=== PATIENT | female | born 1995 | race Caucasian/White ===

== ENCOUNTER 2024-05-24 10:53 | Outpatient (CLI) | payer MEDICAID, SELFPAY ==
--- NOTE | 2024-05-24 10:59 | US_ITS ---
PROCEDURE INFORMATION: Exam: US Left Breast, Complete Exam date and time: 05/24/2024 10:55 AM Age: 28 years old Clinical indication: Breast pain; Left; Left breast/lump TECHNIQUE: Imaging protocol: Complete ultrasound of all four quadrants of the left breast and the retroareolar regions, including ultrasound of the axilla when performed. COMPARISON: No relevant prior studies available. FINDINGS: ULTRASOUND: Breast ultrasound findings: Sonographic images of the left breast including the retroareolar region, all 4 quadrants and the axilla do not demonstrate any solid or cystic masses. 0.6 cm fat containing normal appearing intramammary lymph node in the left 3 o'clock axis 5 cm from the nipple. No architectural distortion or acoustical shadowing. No skin thickening or axillary adenopathy. IMPRESSION: If the patient is reporting a palpable abnormality, further evaluation with a diagnostic left mammogram would be recommended. In the absence of a palpable abnormality or other significant clinical symptoms,annual bilateral mammographic screening is recommended to commence at the age of 40 ASSESSMENT: BI-RADS Category 1: Negative.
== END 2024-05-24 23:59 | disposition home or self-care (01) ==
LOC: RAD 10:54
PROVIDERS: PCP Nurse Practitioner Family; Visit Provider Nurse Practitioner Family
DX: N63.25 Unspecified lump in the left breast, overlapping quadrants (principal)
CPT/HCPCS: 76641

== ENCOUNTER 2024-08-11 08:18 | Outpatient (CLI) | payer MEDICAID, SELFPAY ==
--- NOTE | 2024-08-11 08:19 | US_ITS ---
FINAL REPORT CLINICAL HISTORY: elevated liver enzymes COMPARISON: None FINDINGS: Sonographic images of the right upper quadrant were obtained. The pancreas is partially obscured. There is fatty infiltration of the liver. The gallbladder appears normal without evidence of gallstones.There is no evidence of biliary ductal dilatation.The common duct measures 2 mm. Limited images of the right kidney are unremarkable. IMPRESSION: Fatty liver. Reviewed, Interpreted and Dictated by Matthew Eastman III, MD Transcribed by Kathrin Arvizu Authenticated and [facility]
== END 2024-08-11 23:59 | disposition home or self-care (01) ==
LOC: RAD 08:19
PROVIDERS: PCP Nurse Practitioner Family; Visit Provider Nurse Practitioner Family
DX: R74.8 Abnormal levels of other serum enzymes (principal)
CPT/HCPCS: 76705

== ENCOUNTER 2024-10-17 12:02 | Emergency (ER) | payer MEDICAID, SELFPAY ==
[2024-10-17] VITALS (7 sets, daily range): BP systolic 123–144; BP diastolic 78–93; PULSE 90–105; RESP 16–20; TEMP 37–37.1; O2SAT 98–100; BMI 29.7
--- NOTE | 2024-10-17 12:05 | ECG_ITS ---
APPROVED REPORT Exam: Resting ECG HR:102 bpm ECG Measurements Heart Rate 102 AXES IN 134 P 58 QRSd 83 QRS 39 QT 330 T 16 QTc 389 Conclusion SINUS TACHYCARDIA ABNORMAL RHYTHM ECG No STEMI Electronically signed by : NELSON FIELDS, 10/18/2024 06:57:10
--- NOTE | 2024-10-17 12:07 | HMH.EDGENADL ---
Discharge Plan Prescriptions Prescriptions: No Action omeprazole 20 mg capsule,delayed release(DR/EC) 20 mg PO DAILY Qty: 30 5RF buspirone 10 mg tablet 20 mg PO BID Qty: 120 1RF bupropion HCl [Wellbutrin XL] 150 mg tablet extended release 24 hr 150 mg PO DAILY Qty: 30 1RF Print Language Print Language: Portuguese Discharge ED Provider: Leta Davis General Adult HPI General Stated complaint: SYNCOPE Time Seen by Provider: 10/17/24 12:07 Related Data Previous Rx's ?Medication ?Instructions ?Recorded omeprazole 20 mg capsule,delayed 20 mg PO DAILY #30 caps 08/02/24 release bupropion HCl 150 mg 24 hr tablet, 150 mg PO DAILY #30 tabs 09/27/24 extended release (Wellbutrin XL) buspirone 10 mg tablet 20 mg (2 x 10 mg) PO BID #120 tabs 09/27/24 Allergies Allergy/AdvReac Type Severity Reaction Status Date / Time No Known Allergies Allergy Verified 09/26/24 14:48 [facility] Disclaimer: The information contained in this section may have been updated after the patient was seen, as this information can be updated by other users. Medical History (Updated 10/12/24 @ 08:38 by DAYO Gray) Hearing loss Alcohol abuse Generalized anxiety disorder Surgical History History of bunionectomy of left great toe Family History (Updated 09/26/24 @ 14:48 by Ana Paula Casillas RN) Other No significant family history Social History (Updated 09/26/24 @ 14:43 by Ana Paula Casillas RN) Smoking Status: Current every day smoker tobacco type: e-cigarettes second hand exposure: No alcohol intake: current alcohol intake frequency: 3 or more drinks per day counseling given: No substance use type: denies use counseling given: No current occupational status: unemployed and other details: [facility] Travel in the last 8 weeks: None adopted: No caregiver/support person: Yes foster care: No household members: spouse housing: house lives independently: Yes marital status: number of children: 3 number of grandchildren: 0 education level: college current occupation: associates in [employer] caffeine: Yes physical activity: none working smoke detector in home: Yes fire extinguisher in home: Yes carbon monox detector in home: No firearms in home: Yes firearms unloaded and locked: Yes do you feel safe at home: Yes victim of physical abuse: No victim of emotional abuse: No victim of sexual abuse: No would you like helpful sources: No Other Medical History Have you received the Pneumonia Vaccine: No ROS Obtained: Yes Systems reviewed as appropriate & no additional complaints except as documented Physical Exam General General appearance: alert and in no apparent distress Head Head exam: atraumatic and normal inspection Eye Eye exam: Present normal appearance, PERRL and EOMI ENT ENT exam: Present normal exam, normal oropharynx and mucous membranes moist Neck Neck exam: Present normal inspection, full ROM and trachea midline; Absent lymphadenopathy Chest Chest inspection: Present normal inspection and symmetric chest wall rise Respiratory Respiratory exam: Present normal lung sounds bilaterally; Absent accessory muscle use Cardiovascular Cardiovascular exam: Present regular rate, normal rhythm, normal heart sounds, +S1 and +S2 Abdominal Exam Abdominal exam: Present soft and normal bowel sounds; Absent tenderness, guarding or rebound Extremities Exam Extremities exam: Present normal inspection and full ROM Neurological Exam Neurological exam: Present alert, oriented X3 and CN II-XII intact Psychiatric Psychiatric exam: Present normal affect and normal mood Skin Skin exam: Present warm, dry and normal color Lymphatic Lymphatic Findings: no adenopathy Medical Decision Making Medical Records Screening: Per USPSTF and CDC recommendations, given the prevalence of disease in our region, it is our hospital?s policy to screen for HIV and viral Hepatitis for all patients aged 18 and over and those with ongoing risk factors. Medical Decision Narrative: In summary patient is a [age, sex] who presents to the emergency department for evaluation of [complaint]. Patient is [hemodynamically stable/unstable] upon arrival, [febrile/afebrile]. [Unremarkable physical exam, nonfocal exam versus focal remarkable exam]. Differential diagnosis includes [DDx]. Initial workup will be conducted with [hematologic labs, imaging, respiratory swab, describe workup]. Initial interventions include [crystalloid bolus, medications, p.o. challenge, etc.] initial workup reviewed by me [hematologic labs are remarkable for... Imaging remarkable for... Urinalysis remarkable for]. Upon repeat evaluation [patient had acceptable resolution of symptoms, had persistent pain for which additional interventions were conducted (describe interventions), tolerated p.o., was ambulatory, etc.]. Given this [patient is appropriate for discharge at this time and will be discharged with a prescription for... The case was discussed with hospital medicine regarding management and they will admit the patient their service for continued evaluation at this time... Etc.] Places where you can increase complexity: I informally interpreted the patient's chest x-ray or CT read and is remarkable for... Documenting what the hall monitor shows with rate and rhythm Consideration of test but deferring. Ex: I considered chest x-ray on this patient however given that they have no oxygen requirement and are clear to auscultation all lung benavides will be deferred. Social determinants of health: Given that patient is undomiciled increases complexity. Given that patient has polysubstance abuse compounds all aspects of care
--- NOTE | 2024-10-17 12:11 | PC.NURSE ---
DR NICOLAS AT BEDSIDE
--- NOTE | 2024-10-17 12:17 | XR_ITS ---
FINAL REPORT CLINICAL HISTORY: Shortness of breath COMPARISON: None FINDINGS: No acute pulmonary opacity is present. There is no evidence of effusion or pneumothorax. Mediastinum is unremarkable. Heart size is normal. IMPRESSION: No acute abnormality. Reviewed, Interpreted and Dictated by Noa Romero MD Transcribed by Kathrin Arvizu Authenticated and [facility]
--- NOTE | 2024-10-17 12:20 | ED_ITS ---
Discharge Plan Disposition Patient Disposition: Home, Self-Care Prescriptions Prescriptions: No Action fluticasone propionate [Flonase Allergy Relief] 50 mcg/actuation spray,suspension 2 spray intranasal DAILY Rx Instructions: administer into each nostril Referrals Follow up/Referrals: Tyler Vann II, MD [Staff Physician] - See instructions Neel Love MD [Staff Physician] - See instructions Activity Restrictions/Add. Instructions Additional Instructions/Restrictions: No emergent medical condition identified today your symptoms are most consistent with an acute vasovagal syncopal episode in the setting of a flulike or viral illness. Additionally you have some mild transaminase elevations which may be secondary to an acute viral illness but will need to be followed to completion. I have given you a referral to Dr. Vann our cat and dog bather you may also choose to follow-up with her transportation agent for an outpatient Holter monitor and possible echo to be thorough to make sure there is no underlying cardiac pathology which is unlikely. Clinical Impressions Clinical Impression: Flu-like symptoms, Syncope, vasovagal, Abnormal transaminases Stand Alone Forms Stand Alone Forms: Work/School Release Instructions Patient Instructions: DI for Syncope in Adults (Fainting), DI for Syncope in Children (Fainting) Print Language Print Language: Libyan Discharge ED Provider: Leta Davis General Adult HPI General Chief complaint: Syncope Stated complaint: SYNCOPE Time Seen by Provider: 10/17/24 12:07 Mode of Arrival: EMS Source of Information: Patient Limitations: No Limitations Description of Symptoms (Recalled from ER Triage Doc. by RN): PT AT PCP FOR FLU- LIKE SYMPTOMS. REPORTS SORE THROAT, RUNNY NOSE, EAR AND HEAD CONGESTION. WHILE AT OFFICE HAD A SYNCOPAL EPISODE, LOC FOR A FEW SECONDS. WITNESSED EVENT, HR 50'S AND LOW B/P. PT FEELS AT BASELINE AT THIS TIME History of Present Illness HPI narrative: 29-year-old female presents today with syncopal episode brought in by EMS. She actually to her primary care doctor for flulike symptoms of an ongoing last or days which includes cough sore throat rhinorrhea ear congestion she is also been complaining of some tinnitus in the right ear and she has a follow-up with ENT soon. She denies any other neurologic complaints. States she felt lightheaded and in the doctor's office her heart rate started to drop 1 into the 50s and her blood pressure dropped as well. She was only unconscious for a matter of moments regained consciousness quickly no seizure-like activity was noted she did not bite her tongue or have any urine incontinence. No history of seizures. Other than recent flulike symptoms she denies any other symptoms including chest pain shortness of breath etc. States she is otherwise back to her baseline other than the infectious symptoms that she initially sought care for the primary care doctor's office. She denies any family history of any sudden cardiac or any personal history of any cardiopulmonary disease. Related Data Home Medications ?Medication ?Instructions ?Recorded ?Confirmed fluticasone propionate 50 2 spray intranasal DAILY 10/20/24 10/20/24 mcg/actuation nasal spray,suspension (Flonase Allergy Relief) Allergies Allergy/AdvReac Type Severity Reaction Status Date / Time No Known Allergies Allergy Verified 10/20/24 14:33 [facility] Disclaimer: The information contained in this section may have been updated after the patient was seen, as this information can be updated by other users. Medical History (Updated 10/20/24 @ 15:42 by Leelee Patel APRN) Chronic sinusitis Ear discharge Sinus pressure Sinus pain Acute pain of both ears Hearing loss Alcohol abuse Generalized anxiety disorder Surgical History History of bunionectomy of left great toe Family History Other No significant family history Social History Smoking Status: Current every day smoker tobacco type: e-cigarettes second hand exposure: No alcohol intake: current alcohol intake frequency: 3 or more drinks per day counseling given: No substance use type: denies use counseling given: No current occupational status: unemployed and other details: [employer] Travel in the last 8 weeks: None adopted: No caregiver/support person: Yes foster care: No household members: spouse housing: house lives independently: Yes marital status: number of children: 3 number of grandchildren: 0 education level: college current occupation: associates in [employer] caffeine: Yes physical activity: none working smoke detector in home: Yes fire extinguisher in home: Yes carbon monox detector in home: No firearms in home: Yes firearms unloaded and locked: Yes do you feel safe at home: Yes victim of physical abuse: No victim of emotional abuse: No victim of sexual abuse: No would you like helpful sources: No Have you lived/traveled outside US in past 30 days?: No Contact w/someone who lives/traveled outside US past 30 days?: No Exposure to someone with infectious disease in past 14 days?: No Do you have a fever (greater than 100.4 F or 38 C)?: No Have you tested positive for COVID-19: No Exposed to someone with COVID-19 in past 14 days?: No Do you have a sore throat?: No Do you have a cough?: No Do you have shortness of breath?: No Do you have a headache?: No Do you have any weakness?: No Are you experiencing any nausea/vomitting?: No Do you have any diarrhea?: No Are you experiencing any unusual bleeding?: No Do you have any muscle aches/pain?: No Do you have any abdominal pain?: No Are you experiencing loss of taste or smell?: No Other Medical History Have you received the Pneumonia Vaccine: No ROS Obtained: Yes All systems reviewed & no additional complaints except as documented Physical Exam General General appearance: alert Respiratory Respiratory exam: Present normal lung sounds bilaterally; Absent respiratory distress Cardiovascular Cardiovascular exam: Present regular rate and normal rhythm Neurological Exam Neurological exam: Present oriented X3 Medical Decision Making Medical Records Screening: Per USPSTF and CDC recommendations, given the prevalence of disease in our region, it is our hospital?s policy to screen for HIV and viral Hepatitis for all patients aged 18 and over and those with ongoing risk factors. Xavi Inquiry Pt receiving controlled substance: No Vital Signs: 10/17/24 12:02 10/17/24 12:05 10/17/24 12:30 Temperature 98.7 F Temperature Source Oral Pulse Rate 100 H 97 H Pulse Rate [Apical] 105 H Respiratory Rate 16 20 Blood Pressure 142/93 H 125/78 Blood Pressure [Right Arm] 142/93 H Blood Pressure Mean [Right Arm] 109 Blood Pressure Source Blood Pressure Source [Right Arm] Automatic Cuff Blood Pressure Position 02 Sat by Pulse Oximetry 100 99 100 Oxygen Delivery Method Room Air Room Air Room Air 10/17/24 13:00 10/17/24 13:26 10/17/24 13:30 Temperature 98.6 F Temperature Source Oral Pulse Rate 97 H 90 91 H Pulse Rate [Apical] Respiratory Rate 18 16 16 Blood Pressure 134/89 134/89 144/87 H Blood Pressure [Right Arm] Blood Pressure Mean [Right Arm] Blood Pressure Source Automatic Cuff Blood Pressure Source [Right Arm] Blood Pressure Position Sitting 02 Sat by Pulse Oximetry 99 99 Oxygen Delivery Method Room Air Room Air Room Air 10/17/24 14:00 Temperature Temperature Source Pulse Rate 104 H Pulse Rate [Apical] Respiratory Rate 18 Blood Pressure 123/79 Blood Pressure [Right Arm] Blood Pressure Mean [Right Arm] Blood Pressure Source Blood Pressure Source [Right Arm] Blood Pressure Position 02 Sat by Pulse Oximetry 98 Oxygen Delivery Method Room Air Lab Data Lab results reviewed: Yes I reviewed the patient's lab results. Lab Results 10/17/24 12:10: WBC 14.7 H, RBC 3.87 L, Hgb 14.1, Hct 40.1, MCV 103.6 H, MCH 36.4 H, MCHC 35.2, RDW 11.2 L, Plt Count 193, MPV 9.5, Neut % (Auto) 84.6 H, L ymph % (Auto) 6.9 L, Hemphill % (Auto) 7.5, Eos % (Auto) 0.2, Baso % (Auto) 0.3, N eut # (Auto) 12.4 H, Lymph # (Auto) 1.0, Hemphill # (Auto) 1.1 H, Eos # (Auto) 0.0, Baso # (Auto) 0.0, Sodium 134 L, Potassium 4.2, Chloride 99, Carbon Dioxide 22, Anion Gap 17.2 H, BUN 7, Creatinine 0.60, Estimated Creat Clear 188, Estimated GFR 118, Est GFR ( Amer) 143, Glucose 106 H, Calcium 9.0, Magnesium 1.6, Total Bilirubin 0.7, AST 131 H, ALT 135 H, Alkaline Phosphatase 96, Troponin I < 0.01, Total Protein 7.4, Albumin 4.9, Globulin 2.5, Albumin/Globulin Ratio 2.0 H , TSH 1.16, Serum HCG, Qual Negative, SARS-CoV-2 (PCR) Not detected, HCV Ab JUJU w/Rflx PCR Qn Negative, HIV Ag/Ab Combo Qual Negative, Influenza A Untype (PCR) Not detected, Influenza Type B (PCR) Not detected 10/17/24 12:10 10/17/24 12:10 Orders (Tests/Meds): ED MEDICATIONS Discontinued Medications Generic Name Dose Route Start Last Admin Trade Name Mackenzie PRN Reason Stop Dose Admin Sodium Chloride 1,000 mls @ 999 mls/hr 10/17/24 12:30 10/17/24 12:24 Sod Chlor 0.9% 1000ml Bag IV 10/17/24 13:30 999 mls/hr .Q1H1M ELZA Administration Ketorolac Tromethamine 15 mg 10/17/24 12:17 10/17/24 12:24 Ketorolac 30mg/Ml Vial IV 10/17/24 12:18 15 mg ONCE ONE Administration ORDERS Category Date Time Status CXR --portable [XR chest portable] Stat Exams 10/17/24 12:17 Completed CBC w/Auto Diff [Complete Blood Count Auto Diff] Stat Lab 10/17/24 12:10 Completed CMP [Comprehensive Metabolic Panel] Stat Lab 10/17/24 12:10 Completed HCG Qualitative, Serum Stat Lab 10/17/24 12:10 Completed HIV Combo Stat Lab 10/17/24 12:10 Completed Hepatitis C Ab Qual. W/ RFX Stat Lab 10/17/24 12:10 Completed Magnesium Stat Lab 10/17/24 12:10 Completed Rapid PCR Covid and Flu A/B Stat Lab 10/17/24 12:10 Completed TSH [Thyroid Stimulating Hormone] Stat Lab 10/17/24 12:10 Completed Trop I [Troponin I] Stat Lab 10/17/24 12:10 Completed ECG Data Tracing #1: I reviewed this ECG and interpreted as documented below: Ventricular rate of 102 sinus tachycardia no acute ischemic changes noted normal axis no significant conduction abnormalities Medical Decision Narrative: 29-year-old with above history and physical presenting today with flulike illness and what appears to be from a historical standpoint a vasovagal syncopal episode. High risk factors from a historical standpoint. EKG was unremarkable. She will be swabbed for COVID and flu given IV fluids Toradol for her symptoms get a chest x-ray to rule out pneumonia and other blood work to rule out electrolyte abnormalities. From a syncopal standpoint I am not concerned as this seems to be consistent with vasovagal syncope in the setting of a viral illness. A single troponin should rule out any myocardial involvement including myocarditis. Of note patient was worried about having a brain tumor as she has had tinnitus and now that she passed out that was her major concern. She has a normal neurologic exam I did offer her to her CT scan but told her that would be very low yield and felt that it would be a lot of radiation exposure. She states he is comfortable not getting any neuroimaging today and that she will follow-up with ENT as previously instructed. Critical Care Critical Care Time Critical Care Time: No
[2024-10-17 12:21] LABS: Coronavirus 19, PCR Not Detected (NotDetected); Influenza A, PCR Not Detected (NotDetected); Influenza B, PCR Not Detected (NotDetected)
[2024-10-17 12:23] LABS: Basophils % 0.3 % (0.1-2.0); Eosinophils % 0.2 % (0.1-12.0); Hematocrit 40.1 % (37.0-47.0); Hemoglobin 14.1 g/dL (12.2-16.2); Lymphocytes % 6.9 % (10-50); Mean Corpuscular HGB Conc 35.2 g/dL (31.8-35.4); Mean Corpuscular Hemoglobin 36.4 pg (27.0-31.2); Mean Corpuscular Volume 103.6 fl (81-99); Mean Platelet Volume 9.5 fl (7.4-10.4); Monocytes # 1.1 K/mm3 (0.1-1.0); Monocytes % 7.5 % (1.7-9.3); Neutrophils # 12.4 K/mm3 (1.8-7.8); Neutrophils % 84.6 % (37.0-80.0); Platelet Count 193 K/mm3 (142-424); Red Blood Count 3.87 M/mm3 (4.20-5.40); Red Cell Distribution Width 11.2 % (11.5-17.5); White Blood Count 14.7 K/mm3 (4.8-10.8)
[2024-10-17] MEDS: 0.9 % SODIUM CHLORIDE 1000ML 1,000 ML 999 ML IV (12:24)
[2024-10-17] MEDS: KETOROLAC 30MG/ML VIAL 15 MG IV (12:24)
[2024-10-17 12:29] LABS: Alanine Aminotransferase 135 U/L (12-78); Albumin Level 4.9 g/dl (3.5-5.0); Alkaline Phosphatase 96 U/L (38-126); Anion Gap 17.2 mEq/L (5-15); Aspartate Amino Transferase 131 U/L (14-36); Bilirubin,Total 0.7 mg/dl (0.2-1.3); Blood Urea Nitrogen 7 mg/dl (7-17); Carbon Dioxide 22 mmol/L (22.0-30.0); Chloride 99 mmol/L (98-107); Creatinine Clearance Estimated 188 mL/min (50-200); Estimated Glomerular Filt Rate 118 ml/min (>60); GFR (African American) 143 ML/MIN (>60); Globulin 2.5 g/dL (1.3-3.2); Glucose 106 mg/dl (74-100); Magnesium 1.6 mg/dl (1.6-2.3); Potassium 4.2 mmoL/L (3.5-5.1); Sodium 134 mmol/L (136-145); Total Protein,Serum 7.4 g/dl (6.3-8.2)
[2024-10-17 12:33] LABS: HCG Qualitative, Serum Negative (Negative)
--- NOTE | 2024-10-17 12:46 | PC.NURSE ---
ROUNDED ON THE PT. THE PT VOICES THAT SHE DOES NOT NEED ANYTHING AT THIS TIME. CALL LIGHT IS WITHIN REACH OF THE PT.
[2024-10-17 12:48] LABS: Troponin I < 0.01 ng/ml (0.00-0.034)
--- NOTE | 2024-10-17 12:50 | PC.NURSE ---
ROUNDED ON PT, REQUESTS LUNCH TRAY
--- NOTE | 2024-10-17 12:57 | PC.NURSE ---
DIETARY NOTIFIED OF LUNCH TRAY REQUEST
[2024-10-17 13:01] LABS: Thyroid Stimulating Hormone 1.16 uIU/mL (0.465-4.68)
--- NOTE | 2024-10-17 13:08 | PC.NURSE ---
CALLING LAB TO CHECK ON STATUS OF COVID/FLU SWAB, GARMENT SORTER STATES THEY GETTING READY TO RESULT IT NOW
[2024-10-17 13:25] LABS: HIV Combo NEGATIVE (Negative)
[2024-10-17 13:33] LABS: Hepatitis C Ab Qual. W/ RFX NEGATIVE (Negative)
--- NOTE | 2024-10-17 13:51 | PC.NURSE ---
Pt. sitting in the bed at this time. No needs at this time. Call light in reach.
== END 2024-10-17 14:18 | disposition home or self-care (01) ==
PROVIDERS: Emergency Provider Student in an Organized Health Care Education/Training Program; PCP Nurse Practitioner Family
DX: R74.8 Abnormal levels of other serum enzymes (principal); R68.89 Other general symptoms and signs; R55 Syncope and collapse; R05.9 Cough, unspecified; J02.9 Acute pharyngitis, unspecified; H93.8X3 Other specified disorders of ear, bilateral; R09.81 Nasal congestion; F17.290 Nicotine dependence, other tobacco product, uncomplicated
CPT/HCPCS: 71045; 80053; 83735; 84443; 84484; 84703; 85025; 86803; 87389; 87636; 93005; 96361; 96374; 99284; J1885; J7030

== ENCOUNTER 2025-03-31 08:48 | Outpatient (CLI) | payer MEDICAID, SELFPAY ==
--- OUTSIDE RECORDS SUMMARY | 2025-03-31 08:50 | XMS_ITS | Clinical Summary ---
Author Organization [facility] Address [address] [place] [address] Care Team Providers Care Metal Fabrication Supervisor Name Role Phone Provider, No Known Primary Care Provider Unavail able Allergies No known active allergies Medications Vit-Fe Fumarate-FA ( vitamin 27-0.8) 27-0.8 MG tablet tablet Take by mouth Daily. Active ibuprofen (ADVIL,MOTRIN) 600 MG tablet Take 1 tablet by mouth Every 6 (Six) Hours. 30 tablet 06/20/2022 Active Active Problems Problem Noted Date Diagnosed Date Post-term , 40-42 weeks of gestation care, subsequent , third trime ster 07/18/2022 Resolved Problems Problem Noted Date Diagnosed Date Resolved Date 06/18/2022 06/20/2022 04/17/2022 06/20/2022 Social History Tobacco Use Types Packs/Day Years Used Date Smoking Tobacco: Former Cigarettes Tobacco Cessation:Counseling Given: Not Answered Alcohol Use Standard Drinks/Week Comments Not Currently 0 (1 standard drink = 0.6 oz pur e alcohol) [place] Depression Scale Answer Date Recorded Retired [place] Depression Score 6 07/10/2022 Retired EPD Scale: Thought of Harming Self Unrec ognized value 07/10/2022 Abuse Screen Answer Date Recorded Unsafe at Home or Work/School Not on file Feels Threatened by Someone? Not on file 06/2023 Does Anyone Keep You from Co ntacting Others or Doint Things Outside the Home? Not on file 07/17/2023 Physical Sign of Abuse Present Not on file 1 09/16/2022 Housing Stability Answer Date Recorded Current Living Arrangements Not on file 05/2023 Potentially Unsafe Housing Conditions Not on alberto e 06/15/2023 Family and Community Support Answer Francisco e Recorded Help with Day-to-Day Activities Not on file 06/15/2023 Lonely or Isolated Not on file 06/15/2023 Employment Answer Date Recorded Do you want help finding or keeping work or a cassie b? Not on file 06/15/2023 Disabilities Answer Date Recorded Concentrating, Remembering, or Making Decisions Difficulty Not on file 06/15/2023 Doing Errands Independently Difficulty Not on fi le 06/15/2023 Education Answer Date Recorded Help with school or training? 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 Not on file Not on le Last Filed Vital Signs Vital Sign Reading Time Taken Comments Blood Pressure 124/78 07/10/2022 9:18 AM EDT Pulse 97 06/20/2022 8:44 AM EDT Temperature 36.7 C (98.1 F) 06/20/2022 8:44 AM EDT Respiratory Rate 18 06/20/2022 8:44 AM EDT Oxygen Saturation 98% 06/18/2022 3:24 PM EDT Inhaled Oxygen Concentration - - Weight 70.6 kg (155 lb 9.6 oz) 07/10/2022 9:18 A M EDT Height 170.2 cm (5' 7 ) 06/17/2022 10:19 PM EDT Body Mass Index 24.37 06/17/2022 10:19 PM EDT Plan of Treatment Health Maintenance Due Date Last Done Comments Annual Gynecologic Pelvic an d Breast Exam 1995 TDAP/TD VACCINES (1 - Tdap) 2014 ANNUAL PHYSICAL 03/19/2022 COVID-19 Vaccine ( - 2023-2 5 season) 2024 INFLUENZA VACCINE 06/07/2025 CHLAMYDIA SCREENING Discontinued 03/19/2022 HEPATITIS C SCREENING Completed 03/19/2022 Pneumococcal Vaccine 0-49 Aged Out No longer eligible based on patient's age to complete this topic Procedures Procedure Name Priority Date/Time Associated Diagnosis Comments CHLAMYDIA TRACHOMATIS, NEISSERIA GONORRHOEAE, PCR W/ CONFIRMATION Routine 03/19/2022 12:06 PM EDT , unspecified gestational age OBSTETRIC PANEL Routine 03/19/2022 12:06 PM EDT , unspecified gestational age from Last 3 Months or Most Recently Relevant to Health Maintenance Results * (ABNORMAL) Obstetric Panel (03/19/2022 12:06 PM EDT) Hepatitis B Surface Ag Negative Negative [facility] Hep C Virus Ab <0.1 0.0 - 0.9 s/co ratio [facility] Comment: Negative: < 0.8 Indeterminate: 0.8 - 0.9 Positive: > 0.9 HCV antibody alone does not differentiate between previous resolved infection and active infection. The CDC and current clinical guidelines recommend that a positive HCV antibody result be followed up with an HCV RNA test to support the diagnosis of acute HCV infection. [facility] offers Hepatitis C Virus (HCV) RNA, Diagnosis, PETAR ([id number]) and Hepatitis C Virus (HCV) Antibody with reflex to Quantitative Real-time PCR ([id number]). RPR Non Reactive Non Reactive [facility] Rubella Antibodies, IgG 2.35 Immune >0.99 index [facility] Comment: Non-immune <0.90 Equivocal 0.90 - 0.99 Immune >0.99 ABO Type O [facility] Rh Factor Positive [facility] Comment: Please note: Prior records for this patient's ABO / Rh type are not available for additional verification. Antibody Screen Negative Negative [facility] WBC 13.8(H) 3.4 - 10.8 x10E3/uL [facility] RBC 3.05(L) 3.77 - 5.28 x10E6/uL [facility] Hemoglobin 10.9(L) 11.1 - 15.9 g/dL [facility] Hematocrit 30.9(L) 34.0 - 46.6 % [facility] MCV 101(H) 79 - 97 fL [facility] MCH 35.7(H) 26.6 - 33.0 pg [facility] MCHC 35.3 31.5 - 35.7 g/dL [facility] RDW 11.9 11.7 - 15.4 % [facility] Platelets 266 150 - 450 x10E3/uL [facility] Neutrophil Rel % 68 Not Estab. % [facility] Lymphocyte Rel % 23 Not Estab. % [facility] Monocyte Rel % 7 Not Estab. % [facility] Eosinophil Rel % 1 Not Estab. % [facility] Basophil Rel % 0 Not Estab. % [facility] Neutrophils Absolute 9.5(H) 1.4 - 7.0 x10E3/uL [facility] Lymphocytes Absolute 3.1 0.7 - 3.1 x10E3/uL [facility] Monocytes Absolute 0.9 0.1 - 0.9 x10E3/uL [facility] Eosinophils Absolute 0.1 0.0 - 0.4 x10E3/uL [facility] Basophils Absolute 0.0 0.0 - 0.2 x10E3/uL [facility] Immature Granulocyte Rel % 1 Not Estab. % [facility] Immature Grans Absolute 0.1 0.0 - 0.1 x10E3/uL [facility] Blood 03/19/2022 12:0 6 PM EDT 03/20/2022 Narrative [facility] (AMBULATORY) - 03/22/2022 3:35 AM EDT Performed at: [address] [place] [id number] Labor Commissioner: Yash Das PhD, Phone: [phone] Eva Walker MD LAB BLOOD ORDERABLES Final Result [facility] ([facility]) [address] [place] [address], [facility] [address] [place] [address], * Chlamydia trachomatis, Neisseria gonorrhoeae, PCR w/ confirmation - Urine, Urine, Catheter (03/19/2022 12:06 PM EDT) Chlamydia trachomatis, PETAR Negative Negative [facility] Neisseria gonorrhoeae, PETAR Negative Negative [facility] Urine Urinary catheter / Unknown 03/19/2022 12:06 PM EDT 03/20/2022 Comment:AIDEN CD- [id number] Narrative [facility] ([facility]) - 03/22/2022 3:35 AM EDT Performed at: 03 - [address] [id number] Labor Commissioner: Angelica Hankins MD, Phone: [phone] us Eva Walker MD MICROBIOLOGY - GENERA L ORDERABLES Final Result [facility] ([facility]) [address] [place] [address], [place] [phone] [facility] [address] [place] [address], [place] [phone] from Last 3 Months or Most Recently Relevant to Health Maintenance Insurance MEDICAID PENDING on file Advance Directives * CPR (Attempt to Resuscitate) (Latest Code Status on File) Date Activated Date Inactivated Comments 06/18/2022 6:21 PM 06/20/2022 2:18 PM Question Answer Comments Code Status (Patient has no pulse and is not breathing): CPR (Attempt to Resuscitate) Medical Interventions (Patie nt has pulse or is breathing): Full Care Teams Metal Fabrication Supervisor Relationship Specialty Start Date End Date Provider, No Known [facility] [place] [address] PCP - General 06/17/22
--- OUTSIDE RECORDS SUMMARY | 2025-03-31 08:51 | XMS_ITS | Patient Health Record ---
Author Organization [facility] Address [address] [facility] [address] [place] [address] Care Team Providers Care Paste Maker Name Role Phone Odilia Hansen Unavailable [phone] Reason For Referral No Information Social History Social History Sexual History: Social Info Question Answer Notes Sexual History Had sex in the past 12 months (vaginal, oral, or anal)? Yes Drugs/Alcohol: Social Info Question Answer Notes Drugs Have you used drugs other than those for medical reasons in the past 12 months? No Alcohol Screen Did you have a drink containing alcohol in the past year? Yes Points 0 Interpretation Negative Tobacco Use: Social Info Question Answer Notes Tobacco Use/Smoking Are you a former smoker Tobacco use other than smoking: Are you an other tobac co user? No Problems Problem Type SNOMED Code ICD Code Onset Dates Problem Status W/U Status Risk Notes Problem Epimenorrhea (N92.0) 2 Active confirmed ABNORMAL UTERINE BLEEDING Plan Of Treatment No Information Medical (General) History Medical History History ICD Code SOCIAL HX: pt is a student SOCIAL HX: pt is a student Bipolar Disorder RITALIN LA 10 MG ORAL CAPSULE EXTENDED R ELEASE 24 HOUR LOESTRIN FE 09/26 1-20 MG-MCG ORAL TABLET Surgical History Surgery Date(Month/Year) Foot s
== END 2025-03-31 23:59 | disposition home or self-care (01) ==
LOC: RT 08:49
PROVIDERS: PCP Nurse Practitioner Family; Visit Provider Physician Assistant
DX: I49.1 Atrial premature depolarization (principal); I49.3 Ventricular premature depolarization; R55 Syncope and collapse
CPT/HCPCS: 93270

== ENCOUNTER 2025-04-20 09:51 | Outpatient (CLI) | payer MEDICAID, SELFPAY ==
--- OUTSIDE RECORDS SUMMARY | 2025-04-20 09:55 | XMS_ITS | Clinical Summary ---
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 RPR Non Reactive Non Reactive [facility] [...] 12:0 6 PM EDT 03/20/2022 Narrative [facility] (AMBULATORY) - 03/22/2022 3:35 AM EDT Performed at: [address] [place] [id number] Professional Development Director: Yash Das PhD, Phone: [phone] Eva Walker MD LAB BLOOD ORDERABLES Final Result [facility] ([facility]) [address] [place] [address], [facility] [address] [place] [address], * Chlamydia trachomatis, Neisseria gonorrhoeae, PCR w/ confirmation - Urine, Urine, Catheter (03/19/2022 12:06 PM EDT) Chlamydia trachomatis, PETAR Negative Negative [facility] Neisseria gonorrhoeae, PETAR Negative Negative [facility] Urine Urinary catheter / Unknown 03/19/2022 12:06 PM EDT 03/20/2022 Comment:AIDEN CD- [id number] Narrative [facility] ([facility]) - 03/22/2022 3:35 AM EDT Performed at: 03 - [address] [id number] Professional Development Director: Angelica Hankins MD, Phone: [phone] us Eva Walker MD MICROBIOLOGY - GENERA L ORDERABLES Final Result [facility] ([facility]) [address] [place] [address], [place] [phone] [facility] [address] [place] [address], [place] [phone] from Last 3 Months or Most Recently [...] pulse or is breathing): Full Care Teams Road Packer Operator Relationship Specialty Start Date End Date Provider, No Known [facility] [place] [address] PCP - General 06/17/22
--- OUTSIDE RECORDS SUMMARY | 2025-04-20 09:55 | XMS_ITS | Patient Health Record ---
Author Organization [facility] Address [address] [facility] [address] [place] [address] Care Team Providers Care Color Specialist Name Role Phone Odilia Hansen Unavailable [phone] Reason For Referral No Information Social History [...]
--- NOTE | 2025-04-20 10:00 | CA_ITS ---
APPROVED REPORT Exam: Exercise Treadmill Technologist: Angelica Kauffman Ht: 5 ft 7 in Wt: 212 lbs BSA: 2.07 m2 HR: 99 bpm BP: 137/91 mmHg Rhythm: SR Medical History Cardiac Risk Factors: FHX of CAD, Smoking Stress Test Details HR Resting HR: 99 bpm Max Heart Rate (APMHR): 191 bpm Target HR (85% APMHR): 162 bpm Recovery HR: 139 bpm BP Resting BP: 137.0/91.0 mmHg Recovery BP: 183.0/112.0 mmHg ECG Resting ECG: SR Stress ECG Conclusion During marifer protocol pt dizziness. No arrhythmias noted. Less than 1.5mm ST segment changes. Electronically signed by : Brit Saunders MD 04/21/2025 13:28:23
== END 2025-04-20 23:59 | disposition home or self-care (01) ==
LOC: RT 09:52
PROVIDERS: PCP Nurse Practitioner Family; Visit Provider Physician Assistant
DX: R94.31 Abnormal electrocardiogram [ECG] [EKG] (principal); R42 Dizziness and giddiness; R00.2 Palpitations; R55 Syncope and collapse
CPT/HCPCS: 93016; 93017; 93018

== ENCOUNTER 2025-06-28 08:32 | Outpatient (CLI) | payer MEDICAID, SELFPAY ==
--- NOTE | 2025-06-28 08:30 | CA_ITS ---
APPROVED REPORT EXAM: Comprehensive 2D, Doppler, and color-flow Echocardiogram Human Resources Specialist: Neha Jay RT(R) Ht: 5 ft 6 in Wt: 210lbs BSA: 2.04 BP: 113/88 mmHg Indications: chest pain, shortness of breath, vapes, palpitations 2D Dimensions LVEF (Nash's) 60.80 % F: 54 - 74 LV Volume 92.30 mL F: 46 - 106 LV Volume Index 45.2 mL/m2 F: 29 - 61 LA Volume 18.90 mL LA Volume Index 9.26 mL/m2 (M/F) 16-34 EF AP4 60.00 % EF AP2 61.6 % EF BP 60.8 % GL Strain -17.2 % M-Mode Dimensions RVDd 3.22 cm (0.9-2.6) LA Diam 2.83 cm (1.9-4.0) LVDd 3.72 cm (3.5-5.7) LVDs 2.79 cm (3.5-5.7) IVSd 0.75 cm (0.6-1.1) PWd 1.07 cm (0.6-1.1) EF (Teich) 50.30% FS 25.00% EDV (Teich) 58.90 mL ESV (Teich) 29.30 mL LV Diastology E Decel Time 150 (160-240 msec) E/A Ratio 0.9 Mitral Valve MV E Max Zacarias. 78.0 (40-130 cm/s) MV A Velocity 90.0 (40-130 cm/s) E/A Ratio 0.87 MV PHT 44.0 ms Left Ventricle The left ventricle is normal size. Left ventricular systolic function is normal. The left ventricular ejection fraction is within the normal range. There is normal left ventricular wall thickness. There is normal LV segmental wall motion. The left ventricular diastolic function is normal. LVEF is 55% Right Ventricle The right ventricle is normal size. The right ventricular systolic function is normal. Atria The left atrium size is normal. The right atrium size is normal. There is no color Doppler evidence of interatrial shunt. Aortic Valve The aortic valve opens well. There is no hemodynamically significant aortic valvular stenosis. No aortic regurgitation is present. Mitral Valve The mitral valve is normal in structure. No evidence of mitral valve stenosis. Trace mitral regurgitation is present. Tricuspid Valve The tricuspid valve leaflets are thin and pliable. Trace tricuspid regurgitation. There is insufficient TR jet to estimate RVSP. Pulmonic Valve The pulmonary valve is grossly normal in structure. Mild pulmonic valve regurgitation is present. Great Vessels The aortic root is normal in size. IVC is normal in size and collapses >50% with inspiration. Pericardium There is no pericardial effusion. Other Information Study Quality: Fair Conclusion Normal biventricular systolic function. Mild PI. Electronically signed by : Brit Saunders MD 07/04/2025 12:02:42
--- OUTSIDE RECORDS SUMMARY | 2025-06-28 08:36 | XMS_ITS | Patient Health Record ---
Author Organization [facility] Address [address] [facility] [address] [place] [address] Care Team Providers Care Assembler Seat Name Role Phone Odilia Hansen Unavailable [phone] Reason For Referral No Information Social History [...] Status W/U Status Risk Notes Problem Epimenorrhea (37869248) Epimenorrhea (N92.0) 01/15/20 12 Active confirmed ABNORMAL UTERINE BLEEDING Plan Of Treatment No Information Medical (General) History Medical History History ICD Code SOCIAL HX: pt is a student SOCIAL HX: pt is a student Bipolar Disorder RITALIN LA 10 MG ORAL CAPSULE EXTENDED R ELEASE 24 HOUR LOESTRIN FE 09/26 1-20 MG-MCG ORAL TABLET Surgical History Surgery Date(Month/Year) Foot s
--- OUTSIDE RECORDS SUMMARY | 2025-06-28 08:36 | XMS_ITS | Clinical Summary ---
Author Organization [facility] Address [address] [place] [address] Care Team Providers Care Vocational Psychologist Name Role Phone Provider, No Known Primary [...] drink = 0.6 oz pur e alcohol) [place] Depression Scale Answer Date Recorded [place] Depression Scale Total 6 07/10/2022 The thought of harming myself has occurred to me . 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 RPR Non Reactive Non Reactive [facility] [...] 12:0 6 PM EDT 03/20/2022 Narrative [facility] ([facility]) - 03/22/2022 3:35 AM EDT Performed at: [address] [place] [id number] Boiler Control Technician: Yash Das PhD, Phone: [phone] Eva Walker MD LAB BLOOD ORDERABLES Final Result [facility] ([facility]) [address] [place] [address], [facility] [address] [place] [address], * Chlamydia trachomatis, Neisseria gonorrhoeae, PCR w/ confirmation - Urine, Urine, Catheter (03/19/2022 12:06 PM EDT) Chlamydia trachomatis, PETAR Negative Negative [facility] Neisseria gonorrhoeae, PETAR Negative Negative [facility] Urine Urinary catheter / Unknown 03/19/2022 12:06 PM EDT 03/20/2022 Comment:AIDEN CD- [id number] Narrative [facility] ([facility]) - 03/22/2022 3:35 AM EDT Performed at: 03 - [facility] [address] [id number] Boiler Control Technician: Angelica Hankins MD, Phone: [phone] us Eva Walker MD MICROBIOLOGY - GENERA L ORDERABLES Final Result [facility] ([facility]) [address] [place] [address], [place] [phone] [facility] [address] [place] [address], [place] [phone] from Last 3 Months or Most Recently [...] pulse or is breathing): Full Care Teams Vocational Psychologist Relationship Specialty Start Date End Date Provider, [place] [address] PCP - General 06/17/22
== END 2025-06-28 23:59 | disposition home or self-care (01) ==
LOC: RT 08:33
PROVIDERS: PCP Nurse Practitioner Family; Visit Provider Internal Medicine
DX: I37.1 Nonrheumatic pulmonary valve insufficiency (principal); R42 Dizziness and giddiness
CPT/HCPCS: 93306